=== PATIENT | male | born 1995 | race Asian ===

== ENCOUNTER 2024-07-29 19:10 | Observation (INO) | payer OTHER ==
[2024-07-29] MEDS ORDERED: ACETAMINOPHEN 500 MG TABLET (FP) ONE (20:58)
[2024-07-29] MEDS ORDERED: diazePAM 5 MG TABLET ONE (20:58)
[2024-07-29] MEDS ORDERED: IBUPROFEN 600 MG TABLET (FP) PO ONE (20:58)
[2024-07-29] MEDS ORDERED: LIDOCAINE 5% TOPICAL PATCH ONE ×2 (21:02→21:04)
[2024-07-29] MEDS: IBUPROFEN 600 MG TABLET (FP) PO ONE (21:07)
[2024-07-29] MEDS: diazePAM 5 MG TABLET PO ONE (21:07)
[2024-07-29] MEDS: LIDOCAINE 5% TOPICAL PATCH TP ONE ×2 (21:07→22:02)
[2024-07-29] MEDS: ACETAMINOPHEN 500 MG TABLET (FP) PO ONE (21:07)
[2024-07-29] MEDS ORDERED: morphine SULFATE 4 MG/ML VIAL ONE (21:51)
[2024-07-29] MEDS: morphine CARPU-JECT 2 MG/1 ML DISP.SYRIN SQ ONE (21:58)
[2024-07-30] LABS: ABSOLUTE IMMATURE GRANULOCYTES 0.03 x10^3/uL (0.0-0.031); BASOPHILS # 0.07 x10^3/uL (0.01-0.08); EOSINOPHIL % 1.9 % (0.8-7.0); EOSINOPHILS # 0.15 x10^3/uL (0.04-0.54); HEMATOCRIT 51.8 % (40.1-51.0); HEMOGLOBIN 16.9 g/dL (13.7-17.5); MCHC 32.6 g/dl (32.3-36.5); MEAN CELL VOLUME 85.2 fl (79.0-92.2); MEAN PLT VOLUME 9.9 fl (9.4-12.4); MONOCYTE # 0.52 x10^3/uL (0.30-0.82); MONOCYTE % 6.7 % (5.3-12.2); PLATELET COUNT 426 x10^3/uL (163-337); RDW 12.7 % (11.9-15.3)
[2024-07-30] MEDS: morphine CARPU-JECT 4 MG/1 ML DISP.SYRIN IVPUSH ONE (00:03)
[2024-07-30 00:26] LABS: CALCIUM 9.9 mg/dL (8.5-10.1); POTASSIUM 4.5 mmol/L (3.5-5.1)
[2024-07-30 00:28] LABS: BLOOD UREA NITROGEN 18.9 mg/dL (7-18)
[2024-07-30 00:30] LABS: CREATININE 0.9 mg/dL (0.55-1.3)
[2024-07-30 01:27] LABS: HCV DIAGNOSTIC IN-HOUSE W/RFLX NON-REACTIVE (NONREACTIVE); HIV INTERPRETATION NEGATIVE (NEGATIVE)
[2024-07-30] MEDS: KETOROLAC TROMETHAMINE 30 MG/1 ML VIAL IVPUSH ONE (02:33)
[2024-07-30 03:20] VITALS: BMI 32.1
[2024-07-30] MEDS: LIDOCAINE PATCH REMOVAL MC SCH ×2 (03:30)
[2024-07-30] MEDS: traMADol HCL 50 MG TABLET PO PRN (05:32)
[2024-07-30] MEDS: KETOROLAC TROMETHAMINE 15 MG/ML VIAL IVPUSH ONE (06:26)
[2024-07-30] MEDS: traMADol HCL 50 MG TABLET PO ONE (06:27)
[2024-07-30] MEDS ORDERED: KETOROLAC TROMETHAMINE 30 MG/1 ML VIAL IVPUSH PRN ×2 (06:48→10:53)
[2024-07-30] MEDS: ACETAMINOPHEN 500 MG TABLET (FP) PO SCH (07:42)
[2024-07-30 08:33] LABS: ABSOLUTE IMMATURE GRANULOCYTES 0.02 x10^3/uL (0.0-0.031); BASOPHILS # 0.05 x10^3/uL (0.01-0.08); EOSINOPHIL % 3.1 % (0.8-7.0); EOSINOPHILS # 0.19 x10^3/uL (0.04-0.54); HEMATOCRIT 51.6 % (40.1-51.0); MCHC 32.9 g/dl (32.3-36.5); MEAN CELL VOLUME 84.6 fl (79.0-92.2); MEAN PLT VOLUME 9.7 fl (9.4-12.4); MONOCYTE # 0.48 x10^3/uL (0.30-0.82); MONOCYTE % 7.7 % (5.3-12.2); PLATELET COUNT 375 x10^3/uL (163-337); RDW 12.5 % (11.9-15.3)
[2024-07-30 08:51] LABS: POTASSIUM 3.5 mmol/L (3.5-5.1)
[2024-07-30 08:55] LABS: BLOOD UREA NITROGEN 15.9 mg/dL (7-18); CALCIUM 9.6 mg/dL (8.5-10.1); MAGNESIUM 2.2 mg/dL (1.8-2.4)
[2024-07-30 08:57] LABS: PHOSPHOROUS 3.9 mg/dL (2.5-4.9)
[2024-07-30 08:59] LABS: CREATININE 0.8 mg/dL (0.55-1.3)
[2024-07-30 09:00] LABS: BILIRUBIN,TOTAL 2.4 mg/dL (0.2-1); TOT PROT 7.6 g/dl (6.4-8.2)
[2024-07-30 09:15] LABS: ERYTHROCYTE SEDIMENTATION RATE 5 mm/hr (0-10)
[2024-07-30] MEDS: diazePAM 5 MG TABLET PO PRN (20:59)
[2024-07-31 09:43] LABS: HEMATOCRIT 51.4 % (40.1-51.0); HEMOGLOBIN 17.1 g/dL (13.7-17.5); MCHC 33.3 g/dl (32.3-36.5); MEAN CELL VOLUME 83.8 fl (79.0-92.2); MEAN PLT VOLUME 10.2 fl (9.4-12.4); PLATELET COUNT 342 x10^3/uL (163-337); RDW 12.4 % (11.9-15.3)
[2024-07-31 10:49] LABS: ALBUMIN 4.1 g/dl (3.4-5.0); BLOOD UREA NITROGEN 16.2 mg/dL (7-18)
[2024-07-31 10:50] LABS: CALCIUM 9.8 mg/dL (8.5-10.1)
[2024-07-31 10:51] LABS: MAGNESIUM 2.4 mg/dL (1.8-2.4)
[2024-07-31 10:52] LABS: PHOSPHOROUS 3.6 mg/dL (2.5-4.9)
[2024-07-31 10:53] LABS: BILIRUBIN,TOTAL 2.4 mg/dL (0.2-1)
[2024-07-31 10:54] LABS: TOT PROT 7.9 g/dl (6.4-8.2)
[2024-07-31 10:55] LABS: CREATININE 0.9 mg/dL (0.55-1.3)
[2024-07-31 11:13] VITALS: BP 135/96; PULSE 85; RESP 18; TEMP 98.2
== END 2024-07-31 13:20 | disposition home or self-care (01) ==
LOC: JER 19:10 → JERFT 19:10 → JERBED 23:42 → J5S 07-30 03:03
PROVIDERS: ADMIT Internal Medicine; ATTEND Internal Medicine
PROC: 3E0333Z Introduction of Anti-inflammatory into Peripheral Vein, Percutaneous Approach (ICD-10-PCS; principal; 2024-07-29)
PROC: 3E023NZ Introduction of Analgesics, Hypnotics, Sedatives into Muscle, Percutaneous Approach (ICD-10-PCS; 2024-07-29)
DX: S46.002A Unspecified injury of muscle(s) and tendon(s) of the rotator cuff of left shoulder, initial encounter (principal); X58.XXXA Exposure to other specified factors, initial encounter; M62.838 Other muscle spasm; Z29.9 Encounter for prophylactic measures, unspecified; Z86.14 Personal history of Methicillin resistant Staphylococcus aureus infection
CPT/HCPCS: 36415; 72125-TC; 73030-TC-LT-FY; 73200-TC-RT; 76700-TC; 80048; 80053; 83735; 84100; 84484; 85025; 85027; 85651; 86140; 86803; 87389; 93005; 93010; 97116-GP; 97161-GP; 99285-25; G0378